=== PATIENT | male | born 1980 | race Two or more races ===

== ENCOUNTER 2023-08-23 08:31 | Inpatient (IN) | payer OTHER ==
[~2023-08-23] VITALS: Ht 170.2 cm; Wt 78.1 kg
[2023-08-23] MEDS: FUROSEMIDE 40 MG/4 ML VIAL IV ONE (08:45)
[2023-08-23 09:21] LABS: Basophils # (auto) 0 10 ^3/uL (0-0.2); Basophils % (auto) 0.1 % (0.0-2.0); Eosinophils # (auto) 0 10 ^3/uL (0-0.8)
[2023-08-23 09:24] LABS: Hematocrit 37.2 % (41.0-53.0); Hemoglobin 12.6 g/dL (13.5-17.5); Lymphocytes # (auto) 0.8 10 ^3/uL (0.4-5.4); Lymphocytes % (auto) 7.5 % (10.0-50.0); Mean Corpuscular Hemoglobin 30.4 pg (28.0-32.0); Mean Corpuscular Hgb Conc. 33.8 g/dL (32.0-36.0); Monocytes # (auto) 1.1 10 ^3/uL (0-1.3); Monocytes % (auto) 10.5 % (0.0-12.0); Neutrophils # (auto) 8.9 10 ^3/uL (1.6-8.6); Neutrophils % (auto) 81.9 % (37.0-80.0); Nucleated Red Blood Cells % 0.7 %; Red Blood Cells 4.14 10^6/uL (4.5-5.90); White Blood Cell 10.9 10^3/uL (4.4-10.8)
[2023-08-23 09:25] LABS: Red Cell Distribution Width 20.5 % (11.8-14.3)
[2023-08-23 09:37] LABS: Alanine Aminotransferase 71 U/L (7-40); Albumin 3.8 g/dL (3.2-4.8); Alkaline Phosphatase 204 U/L (46-116); Anion Gap 14 (5-15); Aspartate Aminotransferase 141 U/L (13-40); BUN/Creatinine Ratio 8.4 (10.0-20.0); Blood Urea Nitrogen 43 mg/dL (9-23); Calcium 9.9 mg/dL (8.5-10.1); Carbon Dioxide 19 mmol/L (20-30); Chloride 97 mmol/L (98-107); Glucose 121 mg/dL (74-106); Magnesium 1.8 mg/dL (1.6-2.6); Potassium 4.5 mmol/L (3.5-5.1); Sodium 130 mmol/L (136-145)
[2023-08-23 09:38] LABS: Bilirubin, Total 2.9 mg/dL (0.2-1.0); Total Protein 7.8 g/dL (5.7-8.2)
[2023-08-23 09:45] VITALS: PULSE 68; RESP 17; O2SAT 95
[2023-08-23 09:45] LABS: INR 1.77 (0.9-1.15); Partial Thromboplastin Time 31.4 SEC (24.5-34.5)
[2023-08-23] MEDS: MORPHINE SULFATE 4 MG/ML SYR/VIAL IV ONE ×2 (10:03→10:44)
[2023-08-23] MEDS: NITROGLYCERIN 2% OINT 1GM PKG TD ONE (10:08)
[2023-08-23] MEDS ORDERED: HEPARIN SODIUM (PORCINE) 5000 UNITS/ML 1ML VIAL IV ONE (10:30)
[2023-08-23] MEDS ORDERED: HEPARIN DRIP/D5W 100UNITS/ML 250 ML IV SCH (10:30)
[2023-08-23] MEDS ORDERED: ONDANSETRON HCL 4 MG/2 ML VIAL IV PRN (12:45)
[2023-08-23] MEDS ORDERED: MORPHINE SULFATE 4 MG/ML SYR/VIAL IV PRN (12:45)
[2023-08-23] MEDS ORDERED: NITROGLYCERIN 0.4 MG SL TAB SL PRN ×2 (12:45)
[2023-08-23] MEDS ORDERED: MORPHINE SULFATE INJ 2 MG/ml SYRG IV PRN (12:45)
[2023-08-23 13:04] LABS: Base Excess -5.4 mmol/L (-2.0-2.0)
[2023-08-23] MEDS: BUMETANIDE 2.5mg/10ml (0.25 mg/ml) INJ IV ONE (13:56)
[2023-08-23] MEDS: BUMETANIDE INJECTION 25 MG in GIVE UN-DILUTED 0 ML IV SCH (14:42)
[2023-08-23] MEDS ORDERED: DEXTROSE (50%) 50ML SYRG IV PRN (15:30)
[2023-08-23] MEDS: ACCU-CHEK COMFORT CURVE STRIP VI SCH (17:00)
[2023-08-23] MEDS ORDERED: FUROSEMIDE 40 MG/4 ML VIAL IV SCH (18:00)
[2023-08-23] MEDS ORDERED: CARV12.544 PO (18:07)
[2023-08-23] MEDS ORDERED: FURO1TAB32 PO (18:07)
[2023-08-23] MEDS ORDERED: ATOR-507 PO (18:07)
[2023-08-23] MEDS ORDERED: BICT1TAB PO (18:07)
[2023-08-23] MEDS ORDERED: SILD50TA PO (18:07)
[2023-08-23 19:50] VITALS: PULSE 60; RESP 22; O2SAT 95
[2023-08-23 21:00] VITALS: BP 101/62; PULSE 65; RESP 19; TEMP 97.3; O2SAT 93
[2023-08-23 21:48] LABS: Urine Bacteria None Seen /hpf (None Seen)
[2023-08-23] MEDS: METOPROLOL TARTRATE 25 MG TAB PO SCH (21:49)
[2023-08-23 21:59] LABS: Urine Blood TRACE /uL (Negative); Urine Clarity Clear (Clear); Urine Color Light-Yellow (Yellow); Urine Protein, UAD TRACE (Negative); Urine Specific Gravity 1.008 (1.001-1.035); Urine Urobilinogen Normal (Negative); Urine WBC <1 /hpf (0 - 3); Urine pH 5.5 (5.0-9.0)
[2023-08-24] VITALS (51 sets, daily range): BP systolic 99–132; BP diastolic 68–87; PULSE 63–86; RESP 7–20; TEMP 95.9–98; O2SAT 93–100
[2023-08-24] MEDS: SODIUM CHL 0.9% 1000 ML BAG XX ONE (07:00)
[2023-08-24] MEDS: ASPirin 81 mg TAB PO SCH (09:51)
[2023-08-24] MEDS: DOCUSATE SOD 100 MG CAP PO SCH (09:51)
[2023-08-24] MEDS: ALBUMIN 25% 100 ML IV SCH (10:00)
[2023-08-24 10:11] LABS: Basophils # (auto) 0 10 ^3/uL (0-0.2); Eosinophils # (auto) 0 10 ^3/uL (0-0.8); Eosinophils % (auto) 0.1 % (0.0-7.0); Monocytes # (auto) 0.5 10 ^3/uL (0-1.3); Nucleated Red Blood Cells % 0.4 %
[2023-08-24 10:13] LABS: Basophils % (auto) 0.1 % (0.0-2.0); Hematocrit 37.8 % (41.0-53.0); Hemoglobin 12.8 g/dL (13.5-17.5); Lymphocytes # (auto) 0.6 10 ^3/uL (0.4-5.4); Lymphocytes % (auto) 7.8 % (10.0-50.0); Mean Corpuscular Hemoglobin 30.8 pg (28.0-32.0); Mean Corpuscular Volume 90.7 fL (80.0-100.0); Neutrophils # (auto) 6.2 10 ^3/uL (1.6-8.6); Red Blood Cells 4.17 10^6/uL (4.5-5.90); Red Cell Distribution Width 20.9 % (11.8-14.3); White Blood Cell 7.2 10^3/uL (4.4-10.8)
[2023-08-24] MEDS ORDERED: ENOXAPARIN SOD 80 MG/0.8ML SYRINGE SC ONE (10:15)
[2023-08-24 10:27] LABS: INR 1.73 (0.9-1.15); Partial Thromboplastin Time 31.9 SEC (24.5-34.5); Prothrombin Time 17.6 sec (9.3-11.8)
[2023-08-24 10:36] LABS: Alanine Aminotransferase 77 U/L (7-40); Albumin 4.1 g/dL (3.2-4.8); Alkaline Phosphatase 235 U/L (46-116); Anion Gap 9 (5-15); Aspartate Aminotransferase 162 U/L (13-40); BUN/Creatinine Ratio 9.3 (10.0-20.0); Bilirubin, Total 3.4 mg/dL (0.2-1.0); Blood Urea Nitrogen 34 mg/dL (9-23); Calcium 9.7 mg/dL (8.5-10.1); Carbon Dioxide 26 mmol/L (20-30); Chloride 99 mmol/L (98-107); Cholesterol 82 mg/dL (< 200); Glucose 87 mg/dL (74-106); HDL Cholesterol 16 mg/dL (40-59); LDL Cholesterol 44 mg/dL (< 100); Potassium 4.1 mmol/L (3.5-5.1); Sodium 134 mmol/L (136-145); Total Protein 8.3 g/dL (5.7-8.2); Triglycerides 76 mg/dL (< 150)
[2023-08-24 11:13] LABS: Amphetamine Screen, Urine Neg (NEGATIVE)
[2023-08-24 11:14] LABS: Barbiturate Scree,Urine Neg (NEGATIVE); Benzodiazephine Screen, Urine Neg (NEGATIVE); Cocaine Screen, Urine Neg (NEGATIVE); Opiate Scree,Urine Neg (NEGATIVE); Phencyclidine Screen, Urine Neg (NEGATIVE)
[2023-08-24 11:15] LABS: Cannabinoid Screen, Urine Neg (NEGATIVE)
[2023-08-24] MEDS: ENOXAPARIN SOD 40 MG/0.4 ML SYRINGE SC ONE (12:09)
[2023-08-24 13:43] LABS: Eosinophils # (auto) 0 10 ^3/uL (0-0.8); Lymphocytes # (auto) 0.6 10 ^3/uL (0.4-5.4); Mean Corpuscular Hemoglobin 30.8 pg (28.0-32.0); Monocytes # (auto) 1.3 10 ^3/uL (0-1.3)
[2023-08-24 13:46] LABS: Basophils # (auto) 0.1 10 ^3/uL (0-0.2); Basophils % (auto) 0.6 % (0.0-2.0); Eosinophils % (auto) 0.1 % (0.0-7.0); Hematocrit 39.9 % (41.0-53.0); Hemoglobin 13.5 g/dL (13.5-17.5); Lymphocytes % (auto) 7.2 % (10.0-50.0); Mean Corpuscular Hgb Conc. 33.9 g/dL (32.0-36.0); Monocytes % (auto) 14.3 % (0.0-12.0); Neutrophils % (auto) 77.8 % (37.0-80.0); Nucleated Red Blood Cells % 0.3 %; Red Blood Cells 4.38 10^6/uL (4.5-5.90); Red Cell Distribution Width 20.5 % (11.8-14.3)
[2023-08-24 13:52] LABS: Base Excess -2.3 mmol/L (-2.0-2.0)
[2023-08-24 14:49] LABS: Hypochromia Slight; Platelet Estimate Decreased; Target Cell FEW
[2023-08-25] VITALS (31 sets, daily range): BP systolic 98–120; BP diastolic 68–85; PULSE 72–79; RESP 11–20; TEMP 96.2–97.6; O2SAT 90–96
[2023-08-25] MEDS: INSULIN LANTUS (GLARGINE) 1 /0.01ml (100units/ml) SC ONE (00:47)
[2023-08-25] MEDS: ACETAMINOPHEN 325 MG TAB PO PRN (04:10)
[2023-08-25 06:56] LABS: Basophils # (auto) 0 10 ^3/uL (0-0.2); Eosinophils # (auto) 0 10 ^3/uL (0-0.8); Monocytes # (auto) 0.9 10 ^3/uL (0-1.3); Red Cell Distribution Width 20.4 % (11.8-14.3); White Blood Cell 7.4 10^3/uL (4.4-10.8)
[2023-08-25 06:58] LABS: Basophils % (auto) 0.3 % (0.0-2.0); Eosinophils % (auto) 0.1 % (0.0-7.0); Hematocrit 39.1 % (41.0-53.0); Hemoglobin 13.5 g/dL (13.5-17.5); Lymphocytes # (auto) 0.7 10 ^3/uL (0.4-5.4); Lymphocytes % (auto) 9.5 % (10.0-50.0); Mean Corpuscular Hemoglobin 31.2 pg (28.0-32.0); Mean Corpuscular Hgb Conc. 34.4 g/dL (32.0-36.0); Mean Corpuscular Volume 90.7 fL (80.0-100.0); Monocytes % (auto) 11.9 % (0.0-12.0); Neutrophils # (auto) 5.8 10 ^3/uL (1.6-8.6); Neutrophils % (auto) 78.2 % (37.0-80.0); Nucleated Red Blood Cells % 1.1 %; Red Blood Cells 4.31 10^6/uL (4.5-5.90)
[2023-08-25 07:01] LABS: Alanine Aminotransferase 73 U/L (7-40); Albumin 3.9 g/dL (3.2-4.8); Alkaline Phosphatase 272 U/L (46-116); Anion Gap 12 (5-15); Aspartate Aminotransferase 145 U/L (13-40); BUN/Creatinine Ratio 10.9 (10.0-20.0); Carbon Dioxide 22 mmol/L (20-30); Chloride 98 mmol/L (98-107); Glucose 89 mg/dL (74-106); Magnesium 2.3 mg/dL (1.6-2.6); Potassium 4.3 mmol/L (3.5-5.1); Sodium 132 mmol/L (136-145)
[2023-08-25 07:02] LABS: Bilirubin, Total 3.3 mg/dL (0.2-1.0); Total Protein 7.9 g/dL (5.7-8.2)
[2023-08-25 07:05] LABS: Blood Urea Nitrogen 62 mg/dL (9-23)
[2023-08-25] MEDS ORDERED: IOHEXOL 350 MG/ML 100ML IJ ONE (08:08)
[2023-08-25 09:13] LABS: Hepatitis B Surface Antigen Negative (Negative)
[2023-08-25 09:16] LABS: Hepatitis B Surface Antigen Negative (Negative)
[2023-08-25 09:35] LABS: Hepatitis C Antibody Negative (Negative)
[2023-08-25 09:36] LABS: Hepatitis A Ab IgM Negative
[2023-08-25 09:37] LABS: Hepatitis B Core IgM Negative; Hepatitis C Antibody Negative (Negative)
[2023-08-25 10:07] LABS: % CD 4 Pos Lymph 29.7 % (30.8-58.5); % CD 8 Pos Lymph 23.9 % (12.0-35.5); CD4/CD8 Ratio 1.24 (0.92-3.72)
[2023-08-25] MEDS: ATORVASTATIN 20 MG TAB PO SCH (11:24)
[2023-08-25 13:07] LABS: Absolute CD 4 Helper 208 /uL (359-1519); Basos 0 % (Not Estab.); Eos 0 % (Not Estab.); Hematocrit 37.7 % (37.5-51.0); Hematology Comments: Note: (.); Hemoglobin 12.6 g/dL (13.0-17.7); Lymphs 9 % (Not Estab.); Lymphs (Absolute) 0.7 x10E3/uL (0.7-3.1); MCH 30.4 pg (26.6-33.0); MCHC 33.4 g/dL (31.5-35.7); MCV 91 fL (79-97); Monocytes 6 % (Not Estab.); Monocytes (Absolute) 0.5 x10E3/uL (0.1-0.9); Neutrophils 85 % (Not Estab.); Neutrophils (Absolute) 6.3 x10E3/uL (1.4-7.0); Platelets 55 x10E3/uL (150-450); RBC 4.15 x10E6/uL (4.14-5.80); RDW 17.8 % (11.6-15.4); WBC 7.4 x10E3/uL (3.4-10.8)
[2023-08-25] MEDS ORDERED: BUMETANIDE INJECTION 25 MG in GIVE UN-DILUTED 0 ML IV SCH (17:15)
[2023-08-25] MEDS ORDERED: INSULIN LANTUS (GLARGINE) 1 /0.01ml (100units/ml) SC SCH (22:00)
[2023-08-26] MEDS ORDERED: Bictegravir-Emtricitabine-Teno (Biktarvy 50-200-25 mg) 1 TAB PO SCH (10:00)
== END 2023-08-25 19:05 | disposition left against medical advice (07) | DRG 469 ==
LOC: EDBD 08:31 → ER 08:31 → TELE 12:42 → TELE-WESTW 18:36 → DOU IN ICU 08-24 12:45
PROVIDERS: ADMIT Internal Medicine Pulmonary Disease; ATTEND Emergency Medicine
PROC: 02HV33Z Insertion of Infusion Device into Superior Vena Cava, Percutaneous Approach (ICD-10-PCS; principal; 2023-08-23)
PROC: B548ZZA Ultrasonography of Superior Vena Cava, Guidance (ICD-10-PCS; 2023-08-23)
PROC: 5A1D70Z Performance of Urinary Filtration, Intermittent, Less than 6 Hours Per Day (ICD-10-PCS; 2023-08-24)
PROC: 05HD33Z Insertion of Infusion Device into Right Cephalic Vein, Percutaneous Approach (ICD-10-PCS; 2023-08-25)
PROC: B54MZZA Ultrasonography of Right Upper Extremity Veins, Guidance (ICD-10-PCS; 2023-08-25)
DX: N17.9 Acute kidney failure, unspecified (principal); J96.01 Acute respiratory failure with hypoxia; I21.A1 Myocardial infarction type 2; I50.33 Acute on chronic diastolic (congestive) heart failure; I27.20 Pulmonary hypertension, unspecified; E87.1 Hypo-osmolality and hyponatremia; D63.8 Anemia in other chronic diseases classified elsewhere; K72.90 Hepatic failure, unspecified without coma; N18.6 End stage renal disease; D69.59 Other secondary thrombocytopenia; I13.2 Hypertensive heart and chronic kidney disease with heart failure and with stage 5 chronic kidney disease, or end stage renal disease; E11.22 Type 2 diabetes mellitus with diabetic chronic kidney disease; K74.60 Unspecified cirrhosis of liver; D72.829 Elevated white blood cell count, unspecified; F12.10 Cannabis abuse, uncomplicated; R74.01 Elevation of levels of liver transaminase levels; Z53.29 Procedure and treatment not carried out because of patient's decision for other reasons; E83.42 Hypomagnesemia; Z99.2 Dependence on renal dialysis; Z99.81 Dependence on supplemental oxygen; Z91.199 Patient's noncompliance with other medical treatment and regimen due to unspecified reason; Z87.891 Personal history of nicotine dependence
CPT/HCPCS: 36415; 36600; 71045; 71046; 71275; 76700; 80053; 80061; 80074; 80307; 81001; 82805; 82962; 83036; 83735; 83880; 84484; 85025; 85610; 85730; 86360; 86803; 86850; 86900; 86901; 87081; 87340; 90935; 93005; 93306; 93970; 96374; G0378; J1642; J1815

== ENCOUNTER 2023-08-26 06:16 | Inpatient (IN) | payer OTHER ==
[~2023-08-26] VITALS: Ht 165.1 cm; Wt 77.2 kg
[~2023-08-26 06:16] MED LIST: ATOR-507 PO; BICT1TAB PO; CARV12.544 PO; FURO1TAB32 PO; SILD50TA PO
[2023-08-26 06:40] VITALS: PULSE 81; RESP 18; O2SAT 95
[2023-08-26] MEDS: ONDANSETRON HCL 4 MG/2 ML VIAL IV ONE (06:44)
[2023-08-26] MEDS: MORPHINE SULFATE 4 MG/ML SYR/VIAL IV ONE (06:45)
[2023-08-26 07:11] LABS: Basophils # (auto) 0 10 ^3/uL (0-0.2); Eosinophils # (auto) 0 10 ^3/uL (0-0.8); Eosinophils % (auto) 0.2 % (0.0-7.0)
[2023-08-26 07:12] LABS: Basophils % (auto) 0.4 % (0.0-2.0); Hematocrit 39.8 % (41.0-53.0); Hemoglobin 13.8 g/dL (13.5-17.5); Lymphocytes % (auto) 11.4 % (10.0-50.0); Mean Corpuscular Hemoglobin 31.2 pg (28.0-32.0); Mean Corpuscular Hgb Conc. 34.6 g/dL (32.0-36.0); Mean Corpuscular Volume 90.1 fL (80.0-100.0); Monocytes # (auto) 1.1 10 ^3/uL (0-1.3); Monocytes % (auto) 12.7 % (0.0-12.0); Neutrophils # (auto) 6.3 10 ^3/uL (1.6-8.6); Neutrophils % (auto) 75.3 % (37.0-80.0); Nucleated Red Blood Cells % 1.4 %; Red Blood Cells 4.41 10^6/uL (4.5-5.90); White Blood Cell 8.4 10^3/uL (4.4-10.8)
[2023-08-26 07:14] LABS: Red Cell Distribution Width 20.4 % (11.8-14.3)
[2023-08-26 07:19] LABS: Chloride 96 mmol/L (98-107); Potassium 4.2 mmol/L (3.5-5.1); Sodium 128 mmol/L (136-145)
[2023-08-26 07:20] LABS: Anion Gap 12 (5-15); Calcium 9.9 mg/dL (8.5-10.1); Carbon Dioxide 20 mmol/L (20-30)
[2023-08-26 07:25] LABS: Urine Bacteria None Seen /hpf (None Seen)
[2023-08-26 07:25] LABS: BUN/Creatinine Ratio 10.4 (10.0-20.0); Blood Urea Nitrogen 64 mg/dL (9-23); Glucose 115 mg/dL (74-106)
[2023-08-26 07:35] LABS: Urine Blood 2+ /uL (Negative); Urine Clarity Clear (Clear); Urine Color Light-Yellow (Yellow); Urine Protein, UAD TRACE (Negative); Urine Urobilinogen Normal (Negative); Urine WBC 1 /hpf (0 - 3); Urine pH 6.5 (5.0-9.0)
[2023-08-26 07:38] LABS: Anisocytosis Slight; Large Platelets FEW; Platelet Estimate Decreased; Target Cell FEW; Tear Drop Cells FEW
[2023-08-26 07:49] LABS: Amphetamine Screen, Urine Neg (NEGATIVE); Benzodiazephine Screen, Urine Neg (NEGATIVE)
[2023-08-26 07:50] LABS: Barbiturate Scree,Urine Neg (NEGATIVE); Cannabinoid Screen, Urine Neg (NEGATIVE); Cocaine Screen, Urine Neg (NEGATIVE); Opiate Scree,Urine Neg (NEGATIVE); Phencyclidine Screen, Urine Neg (NEGATIVE)
[2023-08-26] MEDS ORDERED: MORPHINE SULFATE INJ 2 MG/ml SYRG IV PRN (13:15)
[2023-08-26] MEDS: PANTOPRAZOLE 40 MG/10 ML VIAL INJ IV ONE (13:26)
[2023-08-26] MEDS: FUROSEMIDE 40 MG/4 ML VIAL IV ONE (13:44)
[2023-08-26 20:00] VITALS: PULSE 70; RESP 16; O2SAT 96
[2023-08-26] MEDS ORDERED: HEPARIN SODIUM (PORCINE) 5000 UNITS/ML 1ML VIAL SC SCH (22:00)
[2023-08-26 22:38] VITALS: BP 114/87; PULSE 78; RESP 19; TEMP 97.7; O2SAT 97
[2023-08-27] VITALS (9 sets, daily range): BP systolic 91–123; BP diastolic 56–82; PULSE 64–79; RESP 18–22; TEMP 97.3–98.6; O2SAT 94–100
[2023-08-27 05:40] LABS: Basophils # (auto) 0 10 ^3/uL (0-0.2); Basophils % (auto) 0.2 % (0.0-2.0); Eosinophils # (auto) 0 10 ^3/uL (0-0.8); Eosinophils % (auto) 0.4 % (0.0-7.0); Hematocrit 40.1 % (41.0-53.0); Hemoglobin 13.6 g/dL (13.5-17.5); Lymphocytes # (auto) 0.9 10 ^3/uL (0.4-5.4); Mean Corpuscular Hemoglobin 31.1 pg (28.0-32.0); Mean Corpuscular Volume 91.5 fL (80.0-100.0); Monocytes % (auto) 13.8 % (0.0-12.0); Neutrophils # (auto) 5.3 10 ^3/uL (1.6-8.6); Neutrophils % (auto) 73.6 % (37.0-80.0); Nucleated Red Blood Cells % 1.1 %; Red Blood Cells 4.38 10^6/uL (4.5-5.90); Red Cell Distribution Width 21.4 % (11.8-14.3); White Blood Cell 7.2 10^3/uL (4.4-10.8)
[2023-08-27 05:59] LABS: Alanine Aminotransferase 71 U/L (7-40); Albumin 3.8 g/dL (3.2-4.8); Alkaline Phosphatase 313 U/L (46-116); Anion Gap 13 (5-15); Aspartate Aminotransferase 148 U/L (13-40); BUN/Creatinine Ratio 10.6 (10.0-20.0); Blood Urea Nitrogen 73 mg/dL (9-23); Calcium 9.9 mg/dL (8.7-10.4); Carbon Dioxide 23 mmol/L (20-30); Chloride 92 mmol/L (98-107); Glucose 127 mg/dL (74-106); Potassium 4.6 mmol/L (3.5-5.1); Sodium 128 mmol/L (136-145)
[2023-08-27 06:00] LABS: Bilirubin, Total 2.9 mg/dL (0.2-1.0); Total Protein 7.8 g/dL (5.7-8.2)
[2023-08-27] MEDS ORDERED: traZODone HCL 50 MG TAB PO PRN (10:45)
[2023-08-27] MEDS: traZODone HCL 50 MG TAB PO ONE (12:00)
[2023-08-27] MEDS: NITROGLYCERIN 0.4 MG SL TAB SL PRN (13:15)
[2023-08-27] MEDS: COLCHICINE 0.6 MG CAP PO ONE (14:14)
[2023-08-27] MEDS: ACETAMINOPHEN 325 MG TAB PO PRN (16:31)
[2023-08-27] MEDS: FUROSEMIDE 40 MG TAB PO SCH (17:22)
[2023-08-27] MEDS: FUROSEMIDE 40 MG/4 ML VIAL IV ONE (21:31)
[2023-08-27] MEDS: CARVEDILOL 12.5 MG TAB PO SCH (22:00)
[2023-08-28] VITALS (8 sets, daily range): BP systolic 86–150; BP diastolic 50–75; PULSE 65–77; RESP 16–22; TEMP 97.5–98.7; O2SAT 92–100
[2023-08-28] MEDS: HYDROcodone-ACET 5/325MG TAB PO PRN (04:41)
[2023-08-28] MEDS: COLCHICINE 0.6 MG CAP PO SCH (09:49)
[2023-08-28] MEDS: [UNRECOGNIZED DRUG - OTHER] PO SCH (09:49)
[2023-08-28] MEDS: ATORVASTATIN 20 MG TAB PO SCH (09:49)
[2023-08-28] MEDS ORDERED: COLCHICINE 0.6 MG CAP PO SCH (10:00)
[2023-08-28] MEDS: NYSTATIN (MOUTH-THROAT) 500,000 UNITS/5 ML SUSP MT SCH (21:14)
[2023-08-29] VITALS (12 sets, daily range): BP systolic 89–110; BP diastolic 55–82; PULSE 61–75; RESP 12–21; TEMP 97.8–98.7; O2SAT 92–99
[2023-08-29] MEDS: traZODone HCL 50 MG TAB PO PRN (01:10)
[2023-08-29 06:58] LABS: Hemoglobin 12.7 g/dL (13.5-17.5)
[2023-08-29 07:00] LABS: Hematocrit 37.2 % (41.0-53.0)
[2023-08-29] MEDS ORDERED: SODIUM CHL 0.9% 1000 ML BAG XX ONE (07:00)
[2023-08-29 07:15] LABS: % Iron Saturation 17.5 % (20-55)
[2023-08-29 07:34] LABS: INR 1.54 (0.9-1.15); Partial Thromboplastin Time 33.6 SEC (24.5-34.5); Prothrombin Time 15.8 sec (9.3-11.8)
[2023-08-29] MEDS ORDERED: LIDOCAINE 2%HCL (LOCAL ANESTH.) INJ 20ML MDV ONE (09:05)
[2023-08-29] MEDS ORDERED: fentaNYL CITRATE 100 MCG/2 ML VL ONE (09:49)
[2023-08-29] MEDS ORDERED: HEPARIN SODIUM (PORCINE) 5000 UNITS/ML 1ML VIAL ONE (09:49)
[2023-08-29] MEDS ORDERED: MIDAZOLAM HCL 2MG/2ML 2ml VIAL (1mg/ml) ONE (09:50)
[2023-08-29] MEDS ORDERED: ceFAZolin 1GM/50ML 50 ML IV ONE (09:57)
[2023-08-29] MEDS: MIDODRINE HCL 10 MG TAB PO ONE (21:43)
[2023-08-29] MEDS: ENOXAPARIN SOD 40 MG/0.4 ML SYRINGE SC ONE (21:47)
[2023-08-30] VITALS (8 sets, daily range): BP systolic 96–115; BP diastolic 66–81; PULSE 74–77; RESP 16–20; TEMP 97.2–97.8; O2SAT 94–99
[2023-08-30] MEDS: FUROSEMIDE 40 MG/4 ML VIAL IV ONE (00:40)
[2023-08-30] MEDS: MIDODRINE HCL 10 MG TAB PO SCH (05:52)
[2023-08-30 06:03] LABS: Hematocrit 37.5 % (41.0-53.0); Hemoglobin 12.6 g/dL (13.5-17.5); Mean Corpuscular Hemoglobin 30.8 pg (28.0-32.0); Mean Corpuscular Hgb Conc. 33.5 g/dL (32.0-36.0); Mean Corpuscular Volume 92.1 fL (80.0-100.0); Red Blood Cells 4.07 10^6/uL (4.5-5.90); White Blood Cell 6.3 10^3/uL (4.4-10.8)
[2023-08-30 06:12] LABS: Red Cell Distribution Width 21.3 % (11.8-14.3)
[2023-08-30 06:14] LABS: Band Neutrophils % (manual) 0; Basophils % (manual) 0 (0.0-2.0); Blast Cells 0; Eosinophils % (manual) 0 (0-7); Metamyelocytes % 0; Myelocytes % 0; Promyelocytes % 0; Reactive Lymphocytes 0
[2023-08-30 06:19] LABS: Alanine Aminotransferase 68 U/L (7-40); Albumin 3.5 g/dL (3.2-4.8); Alkaline Phosphatase 307 U/L (46-116); Anion Gap 12 (5-15); Aspartate Aminotransferase 146 U/L (13-40); BUN/Creatinine Ratio 8.4 (10.0-20.0); Blood Urea Nitrogen 60 mg/dL (9-23); Calcium 9.8 mg/dL (8.7-10.4); Carbon Dioxide 21 mmol/L (20-30); Chloride 95 mmol/L (98-107); Glucose 94 mg/dL (74-106); Potassium 4.5 mmol/L (3.5-5.1); Sodium 128 mmol/L (136-145)
[2023-08-30 06:20] LABS: Bilirubin, Total 3.1 mg/dL (0.2-1.0); Total Protein 7.3 g/dL (5.7-8.2)
[2023-08-30 07:47] LABS: Anisocytosis Slight; Large Platelets FEW; Lymphocytes % (manual) 16 (10.0-50.0); Monocytes % (manual) 12 (0-12); Platelet Estimate Decrea
[2023-08-30] MEDS ORDERED: ENOXAPARIN SOD 40 MG/0.4 ML SYRINGE SC SCH (10:00)
[2023-08-30] MEDS: FUROSEMIDE 40 MG/4 ML VIAL IV SCH (10:14)
[2023-08-30] MEDS: ONDANSETRON HCL 4 MG/2 ML VIAL IV ONE (14:31)
[2023-08-30] MEDS: HYDROcodone-ACET 5/325MG TAB PO ONE (16:07)
[2023-08-30] MEDS: HYDROcodone-ACET 5/325MG TAB PO PRN (22:01)
[2023-08-31 01:00] VITALS: BP 91/59; PULSE 74; RESP 20; TEMP 98.1; O2SAT 96
[2023-08-31 05:00] VITALS: BP 103/71; PULSE 73; RESP 20; TEMP 98; O2SAT 90
[2023-08-31 06:15] LABS: Hematocrit 38.7 % (41.0-53.0); Hemoglobin 13.5 g/dL (13.5-17.5); Mean Corpuscular Hemoglobin 31.9 pg (28.0-32.0); Mean Corpuscular Hgb Conc. 34.9 g/dL (32.0-36.0); Mean Corpuscular Volume 91.3 fL (80.0-100.0); Red Blood Cells 4.24 10^6/uL (4.5-5.90); White Blood Cell 6.2 10^3/uL (4.4-10.8)
[2023-08-31 06:23] LABS: Chloride 97 mmol/L (98-107); Potassium 4.6 mmol/L (3.5-5.1); Sodium 127 mmol/L (136-145)
[2023-08-31 06:24] LABS: Anion Gap 11 (5-15); Calcium 9.5 mg/dL (8.7-10.4); Carbon Dioxide 19 mmol/L (20-30)
[2023-08-31 06:29] LABS: BUN/Creatinine Ratio 6.8 (10.0-20.0); Blood Urea Nitrogen 51 mg/dL (9-23); Glucose 91 mg/dL (74-106)
[2023-08-31 06:38] LABS: Red Cell Distribution Width 21.6 % (11.8-14.3)
[2023-08-31 06:41] LABS: Band Neutrophils % (manual) 0; Basophils % (manual) 0 (0.0-2.0); Blast Cells 0; Metamyelocytes % 0; Myelocytes % 0; Promyelocytes % 0; Reactive Lymphocytes 0
[2023-08-31] MEDS ORDERED: SODIUM CHL 0.9% 1000 ML BAG XX ONE (07:00)
[2023-08-31 08:00] VITALS: PULSE 68
[2023-08-31] MEDS ORDERED: MORPHINE SULFATE INJ 2 MG/ml SYRG IV PRN (08:00)
[2023-08-31 08:44] LABS: Eosinophils % (manual) 1 (0-7); Lymphocytes % (manual) 18 (10.0-50.0); Monocytes % (manual) 16 (0-12); Platelet Estimate Decreased
[2023-08-31 08:45] LABS: Anisocytosis Slight; Giant Platelets Moderate
[2023-08-31] MEDS: FUROSEMIDE 40 MG TAB PO SCH (10:31)
[2023-08-31 12:08] VITALS: BP 130/82; PULSE 62; RESP 18; TEMP 98.7; O2SAT 100
[2023-08-31] MEDS: ONDANSETRON HCL 4 MG/2 ML VIAL IV PRN (14:32)
[2023-08-31 16:34] VITALS: BP 109/77; PULSE 80; RESP 19; TEMP 98.2; O2SAT 97
[2023-08-31 19:12] VITALS: BP 109/77; PULSE 80; RESP 19; TEMP 98.2; O2SAT 97
[2023-08-31] MEDS ORDERED: FURO1TAB33 PO (19:36)
[2023-08-31] MEDS ORDERED: ASPI-543 PO (19:36)
[2023-08-31] MEDS ORDERED: SPIR25TA8 PO (19:49)
[2023-08-31] MEDS ORDERED: METF-370 PO (19:50)
[2023-08-31] MEDS ORDERED: EPOETIN ALFA-EPBX 10,000 UNIT/1ML VIAL SC ONE (21:00)
== END 2023-08-31 20:15 | disposition home or self-care (01) | DRG 133 ==
LOC: EDBD 06:16 → ER 06:16 → TELE 13:15 → TELE-CENTR 22:18
PROVIDERS: ADMIT Internal Medicine Pulmonary Disease; ATTEND Emergency Medicine
PROC: 0JH63XZ Insertion of Tunneled Vascular Access Device into Chest Subcutaneous Tissue and Fascia, Percutaneous Approach (ICD-10-PCS; principal; 2023-08-29)
PROC: 02H633Z Insertion of Infusion Device into Right Atrium, Percutaneous Approach (ICD-10-PCS; 2023-08-29)
PROC: B548ZZA Ultrasonography of Superior Vena Cava, Guidance (ICD-10-PCS; 2023-08-29)
PROC: B518ZZA Fluoroscopy of Superior Vena Cava, Guidance (ICD-10-PCS; 2023-08-29)
PROC: 5A1D70Z Performance of Urinary Filtration, Intermittent, Less than 6 Hours Per Day (ICD-10-PCS; 2023-08-29)
PROC: 5A1D70Z Performance of Urinary Filtration, Intermittent, Less than 6 Hours Per Day (ICD-10-PCS; 2023-08-31)
DX: J96.01 Acute respiratory failure with hypoxia (principal); I21.A1 Myocardial infarction type 2; I50.43 Acute on chronic combined systolic (congestive) and diastolic (congestive) heart failure; D68.9 Coagulation defect, unspecified; D69.6 Thrombocytopenia, unspecified; N17.9 Acute kidney failure, unspecified; E87.1 Hypo-osmolality and hyponatremia; N18.6 End stage renal disease; I27.20 Pulmonary hypertension, unspecified; I13.2 Hypertensive heart and chronic kidney disease with heart failure and with stage 5 chronic kidney disease, or end stage renal disease; I32 Pericarditis in diseases classified elsewhere; Z53.29 Procedure and treatment not carried out because of patient's decision for other reasons; F12.10 Cannabis abuse, uncomplicated; E11.22 Type 2 diabetes mellitus with diabetic chronic kidney disease; K74.60 Unspecified cirrhosis of liver; R74.01 Elevation of levels of liver transaminase levels; E87.8 Other disorders of electrolyte and fluid balance, not elsewhere classified; D50.9 Iron deficiency anemia, unspecified; Z99.2 Dependence on renal dialysis; Z79.899 Other long term (current) drug therapy; Z83.3 Family history of diabetes mellitus; Z79.82 Long term (current) use of aspirin; Z91.148 Patient's other noncompliance with medication regimen for other reason
CPT/HCPCS: 36415; 36558; 71045; 77001; 78582; 80048; 80053; 80307; 81001; 82728; 83540; 83550; 83880; 84484; 85007; 85014; 85018; 85025; 85027; 85610; 85730; 86850; 86900; 86901; 87081; 87340; 90935; 93005; 96374; 96375; 97110; 97116; 97163; 99152; 99291; C1894; G0378; J2250; J2405; J2470

== ENCOUNTER 2023-09-02 08:21 | Inpatient (IN) | payer OTHER ==
[~2023-09-02] VITALS: Ht 165.1 cm; Wt 82.2 kg
[~2023-09-02 08:21] MED LIST changes: +ASPI-543 PO; -CARV12.544 PO; -FURO1TAB32 PO; +FURO1TAB33 PO; +METF-370 PO; -SILD50TA PO; +SPIR25TA8 PO
[2023-09-02 08:50] VITALS: PULSE 73; RESP 16; O2SAT 97
[2023-09-02 09:03] LABS: Chloride 95 mmol/L (98-107); Potassium 4.2 mmol/L (3.5-5.1); Sodium 131 mmol/L (136-145)
[2023-09-02 09:04] LABS: Anion Gap 8 (5-15); Calcium 9.6 mg/dL (8.7-10.4); Carbon Dioxide 28 mmol/L (20-30)
[2023-09-02 09:09] LABS: BUN/Creatinine Ratio 5.8 (10.0-20.0); Blood Urea Nitrogen 29 mg/dL (9-23); Glucose 127 mg/dL (74-106)
[2023-09-02 09:11] LABS: Albumin 3.4 g/dL (3.2-4.8); Bilirubin, Direct 2.2 mg/dL (<0.3); Bilirubin, Total 3.4 mg/dL (0.2-1.0); Total Protein 6.8 g/dL (5.7-8.2)
[2023-09-02] MEDS: ONDANSETRON HCL 4 MG/2 ML VIAL IV ONE (09:26)
[2023-09-02] MEDS: MORPHINE SULFATE 4 MG/ML SYR/VIAL IV ONE (09:26)
[2023-09-02 09:35] LABS: Basophils # (auto) 0 10 ^3/uL (0-0.2); Basophils % (auto) 0.5 % (0.0-2.0); Eosinophils # (auto) 0 10 ^3/uL (0-0.8); Hematocrit 35.7 % (41.0-53.0); Lymphocytes % (auto) 16.3 % (10.0-50.0); Mean Corpuscular Hemoglobin 31.1 pg (28.0-32.0); Mean Corpuscular Hgb Conc. 33.6 g/dL (32.0-36.0); Mean Corpuscular Volume 92.4 fL (80.0-100.0); Monocytes % (auto) 17.4 % (0.0-12.0); Neutrophils # (auto) 3.9 10 ^3/uL (1.6-8.6); Neutrophils % (auto) 65.8 % (37.0-80.0); Nucleated Red Blood Cells % 0.2 %; Red Blood Cells 3.86 10^6/uL (4.5-5.90); White Blood Cell 5.9 10^3/uL (4.4-10.8)
[2023-09-02 09:38] LABS: Red Cell Distribution Width 22.4 % (11.8-14.3)
[2023-09-02 10:13] LABS: Lactic Acid w/Reflex 3.9 mmol/L (0.4-2.0)
[2023-09-02 10:57] LABS: Urine Bacteria None Seen /hpf (None Seen)
[2023-09-02] MEDS ORDERED: DEXTROSE (50%) 50ML SYRG IV PRN (11:00)
[2023-09-02] MEDS: FUROSEMIDE 20 MG/2 ML VIAL IV ONE ×2 (11:08→12:08)
[2023-09-02] MEDS: HYDROmorphone HCL 2 MG/ML VL/or syr IV ONE (11:09)
[2023-09-02 11:38] LABS: Urine Blood 3+ /uL (Negative); Urine Clarity Turbid (Clear); Urine Color Yellow (Yellow); Urine Hyaline Cast FEW /lpf (0 - 2); Urine Mucus FEW (None Seen); Urine Protein, UAD 2+ (Negative); Urine Specific Gravity 1.016 (1.001-1.035); Urine Urobilinogen Normal (Negative); Urine WBC 11 /hpf (0 - 3)
[2023-09-02] MEDS ORDERED: PIPERACILLIN-TAZOB 0.75 GM in D5W 5% 50 ML IV SCH (11:45)
[2023-09-02 11:54] LABS: INR 1.63 (0.9-1.15); Prothrombin Time 16.7 sec (9.3-11.8)
[2023-09-02] MEDS: InsuLIN REG 1unit/0.01ml Soln (100units/ml) SC SCH (12:00)
[2023-09-02] MEDS: ACCU-CHEK COMFORT CURVE STRIP VI SCH (12:28)
[2023-09-02 12:40] LABS: Base Excess 1.2 mmol/L (-2.0-2.0)
[2023-09-02] MEDS: PIPERACILLIN-TAZOB 2.25GM 50 ML IV ONE (13:11)
[2023-09-02 14:30] VITALS: BP 109/72; PULSE 74; RESP 17; TEMP 98; O2SAT 92
[2023-09-02 14:44] LABS: Lactic Acid w/Reflex 3.4 mmol/L (0.4-2.0)
[2023-09-02 14:53] VITALS: PULSE 74; RESP 17; O2SAT 92
[2023-09-02 16:51] VITALS: BP 117/74; PULSE 75; RESP 19; TEMP 98.1; O2SAT 91
[2023-09-02] MEDS ORDERED: VANCOMYCIN PER PHARMACY 0 MG IV SCH (18:00)
[2023-09-02 20:00] VITALS: PULSE 73
[2023-09-02] MEDS: VANCOMYCIN 1GM/200ML 200 ML IV ONE (20:16)
[2023-09-02 21:00] VITALS: BP 106/75; PULSE 75; RESP 20; TEMP 98.2; O2SAT 95
[2023-09-02] MEDS: PIPERACILLIN-TAZOB 2.25GM 50 ML IV SCH (21:17)
[2023-09-02] MEDS: ATORVASTATIN 20 MG TAB PO SCH (21:17)
[2023-09-02 21:57] LABS: Lactic Acid w/Reflex 3.5 mmol/L (0.4-2.0)
[2023-09-02] MEDS: ONDANSETRON HCL 4 MG/2 ML VIAL IV PRN (23:50)
[2023-09-03] VITALS (13 sets, daily range): BP systolic 93–108; BP diastolic 65–78; PULSE 80–95; RESP 16–21; TEMP 97.4–98.9; O2SAT 95–100
[2023-09-03 05:56] LABS: Basophils # (auto) 0 10 ^3/uL (0-0.2); Eosinophils # (auto) 0 10 ^3/uL (0-0.8); Lymphocytes # (auto) 0.7 10 ^3/uL (0.4-5.4); Monocytes # (auto) 0.8 10 ^3/uL (0-1.3); Neutrophils % (auto) 75.9 % (37.0-80.0)
[2023-09-03 05:59] LABS: Basophils % (auto) 0.5 % (0.0-2.0); Hematocrit 37.4 % (41.0-53.0); Hemoglobin 12.9 g/dL (13.5-17.5); Lymphocytes % (auto) 10.7 % (10.0-50.0); Mean Corpuscular Hemoglobin 31.5 pg (28.0-32.0); Mean Corpuscular Hgb Conc. 34.5 g/dL (32.0-36.0); Mean Corpuscular Volume 91.5 fL (80.0-100.0); Monocytes % (auto) 12.9 % (0.0-12.0); Neutrophils # (auto) 4.8 10 ^3/uL (1.6-8.6); Nucleated Red Blood Cells % 0.4 %; Red Blood Cells 4.08 10^6/uL (4.5-5.90); Red Cell Distribution Width 22.6 % (11.8-14.3); White Blood Cell 6.3 10^3/uL (4.4-10.8)
[2023-09-03 06:12] LABS: Chloride 94 mmol/L (98-107); Potassium 4.2 mmol/L (3.5-5.1); Sodium 130 mmol/L (136-145)
[2023-09-03 06:13] LABS: Anion Gap 10 (5-15); Carbon Dioxide 26 mmol/L (20-30)
[2023-09-03 06:14] LABS: Calcium 9.5 mg/dL (8.7-10.4)
[2023-09-03 06:18] LABS: Glucose 70 mg/dL (74-106)
[2023-09-03 06:19] LABS: BUN/Creatinine Ratio 7.8 (10.0-20.0); Blood Urea Nitrogen 44 mg/dL (9-23)
[2023-09-03] MEDS ORDERED: SODIUM CHL 0.9% 1000 ML BAG XX ONE (07:00)
[2023-09-03] MEDS ORDERED: SILD50TA PO (08:47)
[2023-09-03] MEDS ORDERED: CARV12.544 PO (08:47)
[2023-09-03] MEDS ORDERED: FURO80TA3 PO (08:47)
[2023-09-03] MEDS: FUROSEMIDE 20 MG/2 ML VIAL IV SCH (10:00)
[2023-09-03 10:07] LABS: % CD 4 Pos Lymph 28.2 % (30.8-58.5); Absolute CD 4 Helper 338 /uL (359-1519); Basos 1 % (Not Estab.); CD4/CD8 Ratio 0.81 (0.92-3.72); Eos 0 % (Not Estab.); Hematocrit 37.3 % (37.5-51.0); Hematology Comments: Note: (.); Hemoglobin 12.5 g/dL (13.0-17.7); Lymphs 18 % (Not Estab.); Lymphs (Absolute) 1.2 x10E3/uL (0.7-3.1); MCH 30.7 pg (26.6-33.0); MCHC 33.5 g/dL (31.5-35.7); MCV 92 fL (79-97); Monocytes 14 % (Not Estab.); Monocytes (Absolute) 0.9 x10E3/uL (0.1-0.9); Neutrophils 67 % (Not Estab.); Neutrophils (Absolute) 4.1 x10E3/uL (1.4-7.0); Platelets 43 x10E3/uL (150-450); RBC 4.07 x10E6/uL (4.14-5.80); RDW 19.4 % (11.6-15.4); WBC 6.2 x10E3/uL (3.4-10.8)
[2023-09-03] MEDS: HYDROmorphone HCL 2 MG/ML VL/or syr IV PRN (12:12)
[2023-09-03] MEDS: BICTEGRAVIR EMTRICITABINE TENOFOVIR PO SCH (14:56)
[2023-09-03] MEDS: ASPirin-EC 81 mg tab PO SCH (14:56)
[2023-09-03] MEDS: SPIRONOLACTONE 25 MG TAB PO SCH (14:56)
[2023-09-03 15:31] LABS: Body Fluid Polymorphonuclear 10 % (0-25); Body Fluid Red Blood Cells 18150 CUMM (0-2000); Body Fluid White Blood Cells 100 CUMM (0-200); Body Fluid pH 8
[2023-09-04] VITALS (8 sets, daily range): BP systolic 99–111; BP diastolic 68–79; PULSE 40–91; RESP 17–22; TEMP 97.6–99.1; O2SAT 91–98
[2023-09-04 06:15] LABS: Basophils # (auto) 0.1 10 ^3/uL (0-0.2); Basophils % (auto) 1.2 % (0.0-2.0); Eosinophils # (auto) 0 10 ^3/uL (0-0.8); Eosinophils % (auto) 0.1 % (0.0-7.0); Hematocrit 36.9 % (41.0-53.0); Hemoglobin 12.7 g/dL (13.5-17.5); Lymphocytes # (auto) 0.9 10 ^3/uL (0.4-5.4); Lymphocytes % (auto) 13.2 % (10.0-50.0); Mean Corpuscular Hemoglobin 31.7 pg (28.0-32.0); Mean Corpuscular Hgb Conc. 34.5 g/dL (32.0-36.0); Mean Corpuscular Volume 92.1 fL (80.0-100.0); Monocytes # (auto) 0.9 10 ^3/uL (0-1.3); Monocytes % (auto) 13.5 % (0.0-12.0); Neutrophils # (auto) 4.7 10 ^3/uL (1.6-8.6); Nucleated Red Blood Cells % 0.2 %; Red Blood Cells 4.01 10^6/uL (4.5-5.90); Red Cell Distribution Width 22.4 % (11.8-14.3); White Blood Cell 6.5 10^3/uL (4.4-10.8)
[2023-09-04 06:50] LABS: Giant Platelets Few; Large Platelets FEW; Platelet Estimate Decrea
[2023-09-04] MEDS: VANCOMYCIN 750mg/150ml 150 ML IV ONE (10:49)
[2023-09-05] MEDS: HYDROcodone-ACET 5/325MG TAB PO PRN (00:39)
[2023-09-05 01:00] VITALS: BP 113/84; PULSE 90; RESP 18; TEMP 97.9; O2SAT 96
[2023-09-05 05:00] VITALS: BP 104/76; PULSE 93; RESP 18; TEMP 97.7; O2SAT 95
[2023-09-05 06:00] LABS: Alanine Aminotransferase 70 U/L (7-40); Albumin 3.2 g/dL (3.2-4.8); Alkaline Phosphatase 293 U/L (46-116); Anion Gap 11 (5-15); Aspartate Aminotransferase 258 U/L (13-40); BUN/Creatinine Ratio 5.4 (10.0-20.0); Bilirubin, Total 3.9 mg/dL (0.2-1.0); Blood Urea Nitrogen 29 mg/dL (9-23); Calcium 9.2 mg/dL (8.7-10.4); Carbon Dioxide 21 mmol/L (20-30); Chloride 97 mmol/L (98-107); Glucose 92 mg/dL (74-106); Potassium 4.5 mmol/L (3.5-5.1); Sodium 129 mmol/L (136-145); Total Protein 6.7 g/dL (5.7-8.2)
[2023-09-05 06:16] LABS: Lactic Acid w/Reflex 2.3 mmol/L (0.4-2.0)
[2023-09-05 08:00] VITALS: PULSE 83
[2023-09-05 08:37] VITALS: BP 110/88; PULSE 79; RESP 15; TEMP 98; O2SAT 96
[2023-09-05 13:17] VITALS: BP 108/76; PULSE 90; RESP 16; TEMP 97.8; O2SAT 92
[2023-09-05 17:11] VITALS: BP 110/88; TEMP 36.6
[2023-09-06 14:06] LABS: Albumin, Body Fluid 1.6 g/dL (Not Estab.); Protein, Body Fluid 3.2 g/dL (.)
== END 2023-09-05 18:00 | disposition home or self-care (01) | DRG 279 ==
LOC: ER 08:21 → EDBD 08:21 → DOU IN ICU 13:36 → TELE-CENTR 14:32
PROVIDERS: ADMIT Nurse Practitioner Family; ATTEND Internal Medicine
PROC: 0W9G3ZZ Drainage of Peritoneal Cavity, Percutaneous Approach (ICD-10-PCS; principal; 2023-09-03)
PROC: 30233R1 Transfusion of Nonautologous Platelets into Peripheral Vein, Percutaneous Approach (ICD-10-PCS; 2023-09-03)
PROC: 5A1D70Z Performance of Urinary Filtration, Intermittent, Less than 6 Hours Per Day (ICD-10-PCS; 2023-09-03)
DX: K72.10 Chronic hepatic failure without coma (principal); I50.43 Acute on chronic combined systolic (congestive) and diastolic (congestive) heart failure; D68.4 Acquired coagulation factor deficiency; E87.20 Acidosis, unspecified; D69.6 Thrombocytopenia, unspecified; N18.6 End stage renal disease; E87.1 Hypo-osmolality and hyponatremia; K74.60 Unspecified cirrhosis of liver; I27.29 Other secondary pulmonary hypertension; R18.8 Other ascites; E86.0 Dehydration; I13.2 Hypertensive heart and chronic kidney disease with heart failure and with stage 5 chronic kidney disease, or end stage renal disease; T38.3X5A Adverse effect of insulin and oral hypoglycemic [antidiabetic] drugs, initial encounter; E11.22 Type 2 diabetes mellitus with diabetic chronic kidney disease; E66.9 Obesity, unspecified; J98.11 Atelectasis; K62.89 Other specified diseases of anus and rectum; N39.0 Urinary tract infection, site not specified; Z68.32 Body mass index [BMI] 32.0-32.9, adult; Z99.2 Dependence on renal dialysis; Z83.3 Family history of diabetes mellitus; Z79.899 Other long term (current) drug therapy; Y92.89 Other specified places as the place of occurrence of the external cause
CPT/HCPCS: 36415; 36600; 49083; 71045; 74176; 76705; 80048; 80053; 80076; 80202; 81001; 82565; 82805; 82962; 83605; 83615; 83986; 85025; 85048; 85610; 86360; 86850; 86900; 86901; 87040; 87086; 87088; 87186; 87205; 89051; 90935; 96365; 96375; 99291; G0378; J1815; J2405; J2543

== ENCOUNTER 2023-09-06 02:54 | Inpatient (IN) | payer OTHER ==
[~2023-09-06] VITALS: Ht 30.5 cm; Wt 72.7 kg
[2023-09-06] VITALS (7 sets, daily range): BP systolic 86–90; BP diastolic 54–55; PULSE 65–75; RESP 14–92; TEMP 97.5–97.8; O2SAT 92–98
[~2023-09-06 02:54] MED LIST changes: -ASPI-543 PO; +CARV12.544 PO; +FURO80TA3 PO; +SILD50TA PO
[2023-09-06] MEDS: KETOROLAC TROMETH 30 MG/ML 1ML VIAL IV ONE (04:54)
[2023-09-06] MEDS: MORPHINE SULFATE 4 MG/ML SYR/VIAL IV ONE (04:59)
[2023-09-06 05:32] LABS: Basophils # (auto) 0.1 10 ^3/uL (0-0.2); Eosinophils # (auto) 0 10 ^3/uL (0-0.8); Lymphocytes # (auto) 1.1 10 ^3/uL (0.4-5.4)
[2023-09-06 05:34] LABS: Basophils % (auto) 0.9 % (0.0-2.0); Hematocrit 36.7 % (41.0-53.0); Hemoglobin 12.8 g/dL (13.5-17.5); Lymphocytes % (auto) 14.9 % (10.0-50.0); Mean Corpuscular Hemoglobin 31.8 pg (28.0-32.0); Mean Corpuscular Hgb Conc. 34.8 g/dL (32.0-36.0); Mean Corpuscular Volume 91.2 fL (80.0-100.0); Monocytes # (auto) 0.8 10 ^3/uL (0-1.3); Monocytes % (auto) 11.2 % (0.0-12.0); Neutrophils # (auto) 5.5 10 ^3/uL (1.6-8.6); Nucleated Red Blood Cells % 0.1 %; Red Blood Cells 4.02 10^6/uL (4.5-5.90); White Blood Cell 7.5 10^3/uL (4.4-10.8)
[2023-09-06] MEDS: FUROSEMIDE 40 MG/4 ML VIAL IV ONE (05:50)
[2023-09-06 05:52] LABS: INR 1.79 (0.9-1.15); Partial Thromboplastin Time 31.9 SEC (24.5-34.5); Prothrombin Time 18.2 sec (9.3-11.8)
[2023-09-06 05:57] LABS: Alanine Aminotransferase 87 U/L (7-40); Albumin 3.2 g/dL (3.2-4.8); Alkaline Phosphatase 316 U/L (46-116); Anion Gap 12 (5-15); Aspartate Aminotransferase 356 U/L (13-40); BUN/Creatinine Ratio 5.9 (10.0-20.0); Blood Urea Nitrogen 37 mg/dL (9-23); Calcium 9.2 mg/dL (8.7-10.4); Carbon Dioxide 20 mmol/L (20-30); Chloride 96 mmol/L (98-107); Glucose 88 mg/dL (74-106); Lipase 73 U/L (12-53); Magnesium 2.1 mg/dL (1.6-2.6); Sodium 128 mmol/L (136-145)
[2023-09-06 05:58] LABS: Bilirubin, Total 3.6 mg/dL (0.2-1.0)
[2023-09-06 06:00] LABS: Lactic Acid w/Reflex 3.4 mmol/L (0.4-2.0)
[2023-09-06 08:01] LABS: Urine Bacteria None Seen /hpf (None Seen)
[2023-09-06 08:04] LABS: Platelet Estimate Decreased
[2023-09-06 08:05] LABS: Anisocytosis Slight
[2023-09-06 08:12] LABS: Urine Blood 3+ /uL (Negative); Urine Clarity Clear (Clear); Urine Color Yellow (Yellow); Urine Protein, UAD 2+ (Negative); Urine Specific Gravity 1.014 (1.001-1.035); Urine Urobilinogen Normal (Negative); Urine WBC 2 /hpf (0 - 3)
[2023-09-06 08:29] LABS: Amphetamine Screen, Urine Neg (NEGATIVE); Barbiturate Scree,Urine Neg (NEGATIVE); Benzodiazephine Screen, Urine Neg (NEGATIVE)
[2023-09-06 08:30] LABS: Cannabinoid Screen, Urine Neg (NEGATIVE); Cocaine Screen, Urine Neg (NEGATIVE); Opiate Scree,Urine Neg (NEGATIVE); Phencyclidine Screen, Urine Neg (NEGATIVE)
[2023-09-06] MEDS: ONDANSETRON HCL 4 MG/2 ML VIAL IV ONE (09:27)
[2023-09-06] MEDS: MORPHINE SULFATE INJ 2 MG/ml SYRG IV ONE (09:27)
[2023-09-06] MEDS ORDERED: NITROGLYCERIN 0.4 MG SL TAB SL PRN (10:15)
[2023-09-06] MEDS ORDERED: ONDANSETRON HCL 4 MG/2 ML VIAL IV PRN (11:45)
[2023-09-06] MEDS ORDERED: MORPHINE SULFATE INJ 2 MG/ml SYRG IV PRN (11:45)
[2023-09-06] MEDS: ENOXAPARIN SOD 30 MG/0.3 ML SYRINGE SC SCH (11:45)
[2023-09-06] MEDS ORDERED: DOCUSATE SOD 100 MG CAP PO PRN (11:45)
[2023-09-06] MEDS: LACTULOSE 20Gm/30ML SOLN PO SCH (12:22)
[2023-09-06] MEDS: MORPHINE SULFATE INJ 2 MG/ml SYRG IV PRN (12:23)
[2023-09-06] MEDS ORDERED: HYDROmorphone HCL 2 MG/ML VL/or syr IV PRN (16:15)
[2023-09-06] MEDS ORDERED: LACTULOSE 20Gm/30ML SOLN PO ONE (16:30)
[2023-09-06] MEDS ORDERED: FUROSEMIDE 100 MG/10ML VIAL IV ONE (16:30)
[2023-09-06] MEDS ORDERED: ALBUMIN 25% 100 ML IV ONE (16:30)
[2023-09-06] MEDS ORDERED: SODIUM CHL 0.9% 1000 ML BAG XX ONE (16:30)
[2023-09-06] MEDS ORDERED: SODIUM ZIRCONIUM CYCL 10 GM PAK PO ONE (16:30)
[2023-09-06] MEDS: IPRATROPIUM BROM 0.5 MG/2.5ML INH SOL NEB SCH (16:56)
[2023-09-06] MEDS: ALBUTEROL SULF 2.5 MG/0.5ML(0.5%) NEB SOLN NEB SCH (16:56)
[2023-09-06] MEDS ORDERED: LORazepam 2MG/ML-1ML VIAL IV ONE (17:30)
[2023-09-06] MEDS ORDERED: NOREPINEPHRINE 8 MG/250ML KIT 250 ML IV SCH (17:30)
[2023-09-06] MEDS ORDERED: NOREPINEPHRINE 8 MG/250ML KIT 250 ML IV ONE (17:30)
[2023-09-06] MEDS ORDERED: LACTULOSE 20Gm/30ML SOLN PO SCH (18:00)
[2023-09-06] MEDS ORDERED: FUROSEMIDE 100 MG/10ML VIAL IV SCH (18:00)
[2023-09-06 18:30] LABS: Basophils # (auto) 0.1 10 ^3/uL (0-0.2); Basophils % (auto) 0.6 % (0.0-2.0); Eosinophils # (auto) 0 10 ^3/uL (0-0.8); Hemoglobin 12.9 g/dL (13.5-17.5); Lymphocytes % (auto) 30.6 % (10.0-50.0); Mean Corpuscular Hgb Conc. 32.2 g/dL (32.0-36.0); Mean Corpuscular Volume 96.5 fL (80.0-100.0); Monocytes # (auto) 0.9 10 ^3/uL (0-1.3); Monocytes % (auto) 9.1 % (0.0-12.0); Neutrophils # (auto) 5.9 10 ^3/uL (1.6-8.6); Neutrophils % (auto) 59.7 % (37.0-80.0); Nucleated Red Blood Cells % 0.7 %; Red Blood Cells 4.15 10^6/uL (4.5-5.90); White Blood Cell 9.9 10^3/uL (4.4-10.8)
[2023-09-06 18:34] LABS: Base Excess -8.6 mmol/L (-2.0-2.0)
[2023-09-06 19:09] LABS: Anisocytosis Moderate; Platelet Estimate Decreased
[2023-09-06 19:15] LABS: Alanine Aminotransferase 116 U/L (7-40); Albumin 3.1 g/dL (3.2-4.8); Alkaline Phosphatase 318 U/L (46-116); Anion Gap 15 (5-15); Aspartate Aminotransferase 487 U/L (13-40); Carbon Dioxide 13 mmol/L (20-30); Chloride 100 mmol/L (98-107); Glucose 57 mg/dL (74-106); Magnesium 2.7 mg/dL (1.6-2.6)
[2023-09-06 19:16] LABS: Bilirubin, Total 4.3 mg/dL (0.2-1.0); Phosphorus 7.6 mg/dL (2.4-5.1); Total Protein 6.5 g/dL (5.7-8.2)
[2023-09-06 19:24] LABS: Blood Urea Nitrogen 53 mg/dL (9-23); Potassium 7.9 mmol/L (3.5-5.1)
[2023-09-06 19:25] LABS: Calcium 25.8 mg/dL (8.7-10.4); Sodium 128 mmol/L (136-145)
[2023-09-06] MEDS ORDERED: ATROPINE SULF 1 MG/10ml SYR IV ONE ×2 (20:27→21:13)
[2023-09-06] MEDS ORDERED: ATORVASTATIN 20 MG TAB PO SCH (22:00)
[2023-09-06] MEDS ORDERED: LINEZOLID 600MG/300ML 300 ML IV SCH (22:00)
[2023-09-06] MEDS ORDERED: CARVEDILOL 12.5 MG TAB PO SCH (22:00)
[2023-09-06] MEDS ORDERED: FUROSEMIDE 80 MG PO SCH (22:00)
[2023-09-07] MEDS ORDERED: SODIUM CHL 0.9% 1000 ML BAG XX ONE (07:00)
[2023-09-07] MEDS ORDERED: SILDENAFIL CITRATE 20 MG PO SCH (10:00)
[2023-09-07] MEDS ORDERED: PATIENTS OWN MEDICATION (Atorvastatin Calcium (Lipitor) 1 TAB) PO SCH (10:00)
[2023-09-07] MEDS ORDERED: SPIRONOLACTONE 25 MG TAB PO SCH (10:00)
[2023-09-07] MEDS ORDERED: [UNRECOGNIZED DRUG - OTHER] PO SCH (10:00)
[2023-09-08 09:00] LABS: Hepatitis B Surface Antigen Negative (Negative)
[2023-09-08 09:20] LABS: Hepatitis A Ab IgM Negative
[2023-09-08 09:21] LABS: Hepatitis B Core IgM Negative
[2023-09-08 09:22] LABS: Hepatitis C Antibody Negative (Negative)
== END 2023-09-06 18:10 | DRG 133 ==
LOC: ER 02:54 → EDBD 02:54 → OVERFLOW 10:07 → EAST 15:56
PROVIDERS: ADMIT Nurse Practitioner Family; ATTEND Nurse Practitioner Family
PROC: 0BH17EZ Insertion of Endotracheal Airway into Trachea, Via Natural or Artificial Opening (ICD-10-PCS; principal; 2023-09-06)
PROC: 5A12012 Performance of Cardiac Output, Single, Manual (ICD-10-PCS; 2023-09-06)
PROC: 5A0935A Assistance with Respiratory Ventilation, Less than 24 Consecutive Hours, High Flow/Velocity Cannula (ICD-10-PCS; 2023-09-06)
DX: J96.00 Acute respiratory failure, unspecified whether with hypoxia or hypercapnia (principal); I46.9 Cardiac arrest, cause unspecified; I13.2 Hypertensive heart and chronic kidney disease with heart failure and with stage 5 chronic kidney disease, or end stage renal disease; D68.4 Acquired coagulation factor deficiency; E87.20 Acidosis, unspecified; I21.A1 Myocardial infarction type 2; K72.10 Chronic hepatic failure without coma; N18.6 End stage renal disease; K74.60 Unspecified cirrhosis of liver; R18.8 Other ascites; D69.59 Other secondary thrombocytopenia; E87.5 Hyperkalemia; N39.0 Urinary tract infection, site not specified; T38.3X5A Adverse effect of insulin and oral hypoglycemic [antidiabetic] drugs, initial encounter; E11.22 Type 2 diabetes mellitus with diabetic chronic kidney disease; E86.0 Dehydration; I50.32 Chronic diastolic (congestive) heart failure; I50.82 Biventricular heart failure; E11.65 Type 2 diabetes mellitus with hyperglycemia; Z99.2 Dependence on renal dialysis; Z83.3 Family history of diabetes mellitus; Y92.89 Other specified places as the place of occurrence of the external cause
CPT/HCPCS: 36415; 36600; 71045; 74176; 76700; 80053; 80074; 80307; 80320; 81001; 82040; 82140; 82805; 82962; 83605; 83690; 83735; 84100; 84484; 85025; 85610; 85730; 87086; 87088; 87186; 92950; 94640; 96374; 96375; 96376; 99291; G0378; J1885; J2405